=== PATIENT | female | born 1970 | race Hispanic/Latino ===

== ENCOUNTER → 2019-07-13 | Outpatient (CLI) | payer OTHER ==
[~2019-07-13] MED LIST: CONTRACEPTIVE
== END | disposition home or self-care (01) ==
LOC: RAH 15:08
PROVIDERS: ATTEND Obstetrics & Gynecology
DX: Z93.50 Unspecified cystostomy status (principal)
CPT/HCPCS: 74430

== ENCOUNTER → 2019-07-20 | Outpatient (CLI) | payer OTHER | LOC: RAH 09:01 | PROVIDERS: ATTEND Obstetrics & Gynecology | DX: R39.81 Functional urinary incontinence (principal) | CPT/HCPCS: 51600; 74430 ==

== ENCOUNTER → 2019-08-03 | Outpatient (CLI) | payer OTHER | END | disposition home or self-care (01) | LOC: RAH 09:32 | PROVIDERS: ATTEND Urology | DX: N32.89 Other specified disorders of bladder (principal) | CPT/HCPCS: 51600; 74430 ==

== ENCOUNTER → 2019-10-03 | Outpatient (CLI) | payer OTHER | END | disposition home or self-care (01) | LOC: RAH 09:18 | PROVIDERS: ATTEND Urology | DX: N82.0 Vesicovaginal fistula (principal); Z82.49 Family history of ischemic heart disease and other diseases of the circulatory system | CPT/HCPCS: 51600; 74430; Q9958 ==